=== PATIENT | male | born 1960 | race Caucasian/White ===

== ENCOUNTER 2016-12-25 11:51 | Emergency (ER) | payer OTHER ==
[~2016-12-25] VITALS: Ht 170.2 cm; Wt 87.0 kg
[~2016-12-25 11:51] MED LIST: CIPRO500 MG PO; FLAGYL500 MG PO
[2016-12-25 13:23] LABS: ADD MIUA? NO; BILIRUBIN NEGATIVE; BLOOD NEGATIVE; COLOR STRAW ((YELLOW)); GLUCOSE (STRIP) NEGATIVE; KETONES NEGATIVE; LEUKOCYTES NEGATIVE; NITRITE NEGATIVE; PROTEIN (STRIP) NEGATIVE; SPECIFIC GRAVITY 1.011 (1.000-1.030); UROBILINOGEN 0.2 MG/DL (0.2-1.0)
[2016-12-25 13:59] LABS: UCUL ADDED? NO
[2016-12-25] MEDS ORDERED: MOTRIN600 MG PO (15:16)
[2016-12-25] MEDS ORDERED: LIDODERM 5% P1 PATCH TD (15:16)
[2016-12-25] MEDS ORDERED: FLEXERIL10 MG PO (15:16)
[2016-12-25 15:52] VITALS: BP 133/73
== END 2016-12-25 15:52 | disposition home or self-care (01) ==
LOC: EME 11:51
PROVIDERS: Nurse Practitioner Family
DX: M54.5 Low back pain (principal); Z88.0 Allergy status to penicillin
CPT/HCPCS: 72100; 81003; 99281; 99284; J1885